=== PATIENT | male | born 1990 | race African-American/Black ===

== ENCOUNTER 2018-07-06 16:29 | Emergency (ER) | payer OTHER ==
[~2018-07-06] VITALS: Ht 182.9 cm; Wt 130.2 kg
[2018-07-06 22:23] VITALS: BP 132/98
[2018-07-07] MEDS ORDERED: HYDROCODONE-AP1 EAC6 PO (14:43)
== END 2018-07-06 22:24 | disposition home or self-care (01) ==
LOC: ER 16:29
DX: R04.0 Epistaxis (principal)

== ENCOUNTER 2018-07-07 12:51 | Emergency (ER) | payer OTHER ==
[~2018-07-07] VITALS: Ht 182.9 cm; Wt 127.0 kg
[2018-07-07 13:40] LABS: ABSOLUTE NEUTROPHILS 4.9 thou/uL (1.4-8.2); BASOPHILS 0.6 % (0.0-2.0); EOSINOPHILS 2.2 % (0.0-3.0); HEMATOCRIT 48.2 % (42.0-52.0); HEMOGLOBIN 16.5 gm/dL (14.0-18.0); LYMPHOCYTES 18.7 % (24.0-44.0); MCH 32.1 pg (26.0-34.0); MCHC 34.2 g/dL (28.0-37.0); MCV 93.9 fL (80.0-100.0); MONOCYTES 8.3 % (1.0-8.0); PLATELET COUNT 190 thou/uL (150-400); POLYS 70.2 % (36.0-66.0); RBC 5.14 mil/uL (4.50-6.00); RDW 13.5 % (10.5-14.5); WBC 6.9 thou/uL (4.0-11.0)
[2018-07-07 13:47] LABS: CALCIUM 8.9 mg/dL (8.5-10.1); CREATININE 1.2 mg/dL (0.7-1.3); POTASSIUM 4.5 mmol/L (3.5-5.1)
[2018-07-07 14:36] VITALS: BP 153/97
[2018-07-07] MEDS ORDERED: HYDROCODONE-AP1 EAC6 PO (14:43)
[2018-07-08] MEDS ORDERED: AUGMENTIN 875-1 EACH PO (19:23)
== END 2018-07-07 14:57 | disposition home or self-care (01) ==
LOC: ER 12:51
PROVIDERS: Physician Assistant
DX: R04.0 Epistaxis (principal)

== ENCOUNTER 2018-07-08 14:42 | Emergency (ER) | payer OTHER ==
[~2018-07-08] VITALS: Ht 182.9 cm; Wt 127.0 kg
[~2018-07-08 14:42] MED LIST: HYDROCODONE-AP1 EAC6 PO
[2018-07-08] MEDS ORDERED: AUGMENTIN 875-1 EACH PO (19:23)
[2018-07-08 19:52] VITALS: BP 135/96
== END 2018-07-08 19:52 | disposition home or self-care (01) ==
LOC: ER 14:42
DX: R04.0 Epistaxis (principal); F17.210 Nicotine dependence, cigarettes, uncomplicated